=== PATIENT | male | born 1935 | race Caucasian/White ===

== ENCOUNTER 2017-02-04 19:04 | Outpatient (CLI) | payer SELFPAY | END 2017-02-04 19:05 | disposition EMS.NT | LOC: EMS 19:04 | PROVIDERS: ATTEND Surgery | DX: S01.81XA Laceration without foreign body of other part of head, initial encounter (principal); W01.190A Fall on same level from slipping, tripping and stumbling with subsequent striking against furniture, initial encounter; Y92.832 Beach as the place of occurrence of the external cause; Y99.8 Other external cause status ==